=== PATIENT | female | born 1960 | race Caucasian/White ===

== ENCOUNTER 2017-11-02 14:27 | Emergency (ER) | payer OTHER ==
[~2017-11-02] VITALS: Ht 157.5 cm; Wt 95.3 kg
[~2017-11-02 14:27] MED LIST: AZITHROMYCIN 2250 MG PO; EXCEDRIN CAPLE1 EACH PO; FLEXERIL PO; HYDROCODON-ACE1 EAC7 PO; IBUPROFEN 800800 M1 PO; PREDNISONE 20 M20 MG PO; PROAIR HFA8.5 GM INH; PROMETHAZINE-C120 ML PO; TESSALON PERLE100 MG PO; ZOFRAN4 MG PO; ZPAK PO
[2017-11-02] MEDS ORDERED: LISINOPRIL10 MG PO (14:32)
[2017-11-02 16:19] LABS: INFLUENZA A ANTIGEN None Detected (None Detect); INFLUENZA B ANTIGEN None Detected (None Detect)
[2017-11-02] MEDS ORDERED: PROMETHAZINE V473 ML PO (16:40)
[2017-11-02] MEDS ORDERED: TESSALON PERLE100 MG PO (16:40)
[2017-11-02] MEDS ORDERED: PROAIR HFA8.5 GM INH (16:40)
[2017-11-02] MEDS ORDERED: PREDNISONE 20 M20 MG PO (16:40)
[2017-11-02] MEDS ORDERED: ZPAK PO (16:40)
[2017-11-02] MEDS ORDERED: ACETAMINOPHEN-1 EAC1 PO (16:40)
[2017-11-02 16:55] VITALS: BP 123/77
== END 2017-11-02 16:56 | disposition home or self-care (01) ==
LOC: M.ERS 14:27
PROVIDERS: Physician Assistant
DX: J20.9 Acute bronchitis, unspecified (principal); G43.909 Migraine, unspecified, not intractable, without status migrainosus; I10 Essential (primary) hypertension; F17.210 Nicotine dependence, cigarettes, uncomplicated; Z90.89 Acquired absence of other organs; Z90.49 Acquired absence of other specified parts of digestive tract; Z85.43 Personal history of malignant neoplasm of ovary; Z88.6 Allergy status to analgesic agent

== ENCOUNTER 2017-12-05 16:04 | Emergency (ER) | payer OTHER ==
[~2017-12-05] VITALS: Ht 160 cm; Wt 95.7 kg
[~2017-12-05 16:04] MED LIST changes: +ACETAMINOPHEN-1 EAC1 PO; +LISINOPRIL10 MG PO; +PROMETHAZINE V473 ML PO
[2017-12-05] MEDS ORDERED: EXCEDRIN MIGRA1 EACH PO (16:33)
[2017-12-05] MEDS ORDERED: PRILOSEC 20 MG20 MG PO (16:33)
[2017-12-05 16:58] LABS: ABSOLUTE BASOPHILS 0.1 thou/uL (0.0-0.2); ABSOLUTE EOSINOPHILS 0.3 thou/uL (0.0-0.7); ABSOLUTE LYMPHOCYTES 4.7 thou/uL (0.8-5.3); ABSOLUTE MONOCYTES 0.9 thou/uL (0.0-1.2); ABSOLUTE NEUTROPHILS 7.1 thou/uL (1.6-8.1); BASOPHILS 0.5 %; EOSINOPHILS 2.2 %; HEMATOCRIT 47.7 % (37.0-47.0); HEMOGLOBIN 16.1 gm/dL (12.0-15.0); LYMPHOCYTES 35.9 %; MCH 30.9 pg (26.0-34.0); MCHC 33.8 g/dL (28.0-37.0); MCV 91.7 fL (80.0-100.0); MONOCYTES 6.7 %; MPV 7.6 fl. (7.2-11.1); NUCLEATED RBCS 0 /100WBC; PLATELET COUNT* 278 thou/uL (150-400); POLYS 54.7 %; RDW-CV 13.4 % (10.5-14.5)
[2017-12-05 17:05] LABS: ANION GAP 9 mmol/L (7-16); BUN 14 mg/dL (7-18); CHLORIDE 106 mmol/L (98-107); CO2 28 mmol/L (21-32); GLUCOSE 110 mg/dL (70-99); SODIUM 143 mmol/L (136-145)
[2017-12-05 17:12] LABS: ALBUMIN 3.7 g/dL (3.4-5.0); ALKALINE PHOSPHATASE 107 U/L (46-116); SGOT 17 U/L (15-37); SGPT 25 U/L (30-65); TOTAL BILIRUBIN 0.2 mg/dL (<0.1-1.0); TOTAL PROTEIN 7.2 g/dL (6.4-8.2); TROPONIN-I LEVEL <0.06 ng/mL (<0.06)
[2017-12-05 18:06] VITALS: BP 113/58
--- NOTE | 2017-12-06 18:07 | EKG ---
[place] [address] ELECTROCARDIOGRAM REPORT Name: FRANCES ELIZABETH Room: [facility]#: [id number] Admission: 12/05/17 Attend Phys: Discharge: 12/05/17 Date of : 62 Report #: [id number] THIS REPORT FOR: //name// [facility] ED Test Date: 2017-12-05 Test Time: 16:23:23 Pat Name: FRANCES ELIZABETH Department: Room: Gender: F Personal Clothing Laundry Aide: : 1960 Requested By: Terrell Atwood Order Number: [id number] MD: Jovanni Syed Measurements Intervals [place] Rate: 80 P: 46 VT: 146 QRS: -38 QRSD: 97 T: 65 QT: 385 QTc: 445 Interpretive Statements Sinus rhythm Left axis deviation Abnormal R-wave progression, late transition Baseline wander in lead(s) V5 Compared to ECG 11/11/2016 15:57:49 Left-axis deviation now present Ectopic atrial rhythm no longer present T-wave abnormality no longer present Prolonged QT interval no longer present Electronically Signed On 12-06-2017 18:07:14 CDT by Jovanni Syed [email or web address] <ELECTRONICALLY SIGNED> By: Jovanni Syed MD, FACC 12/06/17 1807 1623 1623 Jovanni Syed MD, FACC /EPI
== END 2017-12-05 18:07 | disposition home or self-care (01) ==
LOC: M.ERS 16:04
PROVIDERS: Emergency Medicine Emergency Medical Services
DX: I95.1 Orthostatic hypotension (principal); G43.909 Migraine, unspecified, not intractable, without status migrainosus; I10 Essential (primary) hypertension; F17.210 Nicotine dependence, cigarettes, uncomplicated; Z90.49 Acquired absence of other specified parts of digestive tract; Z90.89 Acquired absence of other organs; Z88.6 Allergy status to analgesic agent

== ENCOUNTER 2018-03-30 20:29 | Emergency (ER) | payer OTHER ==
[~2018-03-30] VITALS: Ht 160 cm; Wt 89.8 kg
[~2018-03-30 20:29] MED LIST changes: +EXCEDRIN MIGRA1 EACH PO; +PRILOSEC 20 MG20 MG PO
[2018-03-30] MEDS ORDERED: FLEXERIL PO (21:11)
[2018-03-30] MEDS ORDERED: NORCO 5-325 TA1 EACH PO (21:11)
[2018-03-30 21:52] VITALS: BP 127/75
== END 2018-03-30 21:53 | disposition home or self-care (01) ==
LOC: M.ERS 20:29
DX: M54.6 Pain in thoracic spine (principal); M54.5 Low back pain; I10 Essential (primary) hypertension; G43.909 Migraine, unspecified, not intractable, without status migrainosus; F17.210 Nicotine dependence, cigarettes, uncomplicated; Z90.49 Acquired absence of other specified parts of digestive tract; Z88.6 Allergy status to analgesic agent